=== PATIENT | female | born 1960 | race Caucasian/White ===

== ENCOUNTER → 2024-08-21 | Outpatient (CLI) | payer MEDICAID ==
[~2024-08-21] MED LIST: ANTI-FUNGAL POW71 GM T; ASPIRIN ADULT L81 M1 PO; DEXCOM G7 SENS1 EACH MC; HUMALOG100 UNIT/1 SC; ISO GENTAM120 MG/100 IV; JANUVIA50 MG PO; JARDIANCE25 MG PO; KEPPRA500 MG PO; LANTUS SOL100 UNIT/1 SC; LEVOTHYROXINE50 MCG PO; LIPITOR40 MG PO; LOPRESSOR25 MG PO; METFORMIN HYDR750 MG PO; NEURONTIN100 MG PO; NYSTATIN1 EAC3 T; OXYBUTYNIN CHLOR5 M1 PO; PEPCID20 MG PO; PLAVIX75 M1 PO; PRILOSEC20 M1 PO; REMERON SOLTAB45 MG PO; SPIRIVA18 MCG INH; TOPAMAX100 M1 PO; TYLENOL325 M2 PO
== END | disposition home or self-care (01) ==
LOC: ORTHO 01:08
PROVIDERS: ATTEND Orthopaedic Surgery
DX: M17.11 Unilateral primary osteoarthritis, right knee (principal); M25.761 Osteophyte, right knee; M16.11 Unilateral primary osteoarthritis, right hip; M25.561 Pain in right knee; M25.551 Pain in right hip

== ENCOUNTER → 2024-09-05 | Day surgery (SDC) | payer MEDICAID ==
[~2024-09-05] VITALS: Ht 147.3 cm; Wt 112.9 kg
[~2024-09-05] MED LIST changes: +BUPivacaine 0.25% 10 ML VIAL ONE; +Betamethasone ACE/Betamethas 30 MG/5 ML VIAL IJ ONE; +Lidocaine Hydrochloride 5 ML AMP ONE
[2024-09-05 07:34] VITALS: BP 143/56
[2024-09-05 07:50] VITALS: BP 165/92
[2024-09-05 08:00] VITALS: BP 146/96
[2024-09-05 08:10] VITALS: BP 115/84
== END | disposition home or self-care (01) ==
LOC: SDC 08-26 00:37
PROVIDERS: ATTEND Orthopaedic Surgery
DX: M16.11 Unilateral primary osteoarthritis, right hip (principal); I11.0 Hypertensive heart disease with heart failure; I50.9 Heart failure, unspecified; E78.00 Pure hypercholesterolemia, unspecified; I25.2 Old myocardial infarction; I25.10 Atherosclerotic heart disease of native coronary artery without angina pectoris; E11.9 Type 2 diabetes mellitus without complications; E07.9 Disorder of thyroid, unspecified; F17.210 Nicotine dependence, cigarettes, uncomplicated; Z86.73 Personal history of transient ischemic attack (TIA), and cerebral infarction without residual deficits; Z98.890 Other specified postprocedural states; Z79.899 Other long term (current) drug therapy; Z91.040 Latex allergy status; Z91.041 Radiographic dye allergy status; Z88.8 Allergy status to other drugs, medicaments and biological substances